=== PATIENT | male | born 1965 | race Two or more races ===

== ENCOUNTER 2021-02-26 09:04 | Day surgery (SDC) | payer MEDICARE, OTHER ==
[~2021-02-26] VITALS: Ht 180.3 cm; Wt 82.0 kg
[2021-02-26] MEDS ORDERED: LIPITOR20 MG PO (09:22)
[2021-02-26] MEDS ORDERED: KLONOPIN2 MG PO ×3 (09:23→09:24)
[2021-02-26] MEDS ORDERED: COLACE100 MG PO (09:25)
[2021-02-26] MEDS ORDERED: NEURONTIN300 MG PO ×2 (09:25→09:26)
[2021-02-26] MEDS ORDERED: LEVOTHYROXINE50 MC1 PO (09:27)
--- NOTE | 2021-02-26 10:20 | NUR ---
LE 0930 WATCHING TV. CAREGIVER AT BEDSIDE. 1020 RESTING. CAREGIVER IN ROOM.
--- NOTE | 2021-02-26 11:46 | NUR ---
WATCHING TV WITH NO C/O'S. UPDATED ON DELAY.
--- NOTE | 2021-02-26 12:22 | NUR ---
LE 1215 PT'S CAREGIVER ASKING FOR SOMETHING TO HELP PT RELAX. PT PULLING AT IV. SPOKE WITH ANESTHESIA. NEW ORDERS RECEIVED. 1216 VERSED 1MG GIVEN IVP. CAREGIVER DRAWING PICTURES FOR PT. 1221 VERSED 1MG GIVEN IVP TO HELP PT RELAX. AFRIN 2 SPRAYS PER NOSTRIL GIVEN PER ANESTHESIA REQUEST. CAREGIVER DRAWING AT BEDSIDE TO HELP RELAX PT.
--- NOTE | 2021-02-26 12:41 | NUR ---
PT WATCHING TV. CAREGIVER AT BEDSIDE.
--- NOTE | 2021-02-26 13:49 | NUR ---
CAREGIVER REPORTS PT GETTING RESTLESS AND STARTING TO PULL AT IV. GYNECOLOGIST NOTIFIED AND MEDICAITON GIVEN PER GYNECOLOGIST.
--- NOTE | 2021-02-26 15:15 | NUR ---
02/26/21 1515 Francie Holt 1512: PT ARRIVES TO PACU FOR RECOVERY. NON RESPONSIVE AND OPA IN PLACE. VSS, RESP EVEN AND UNLABORED. O2 SAT STABLE ON 6L VIA FACEMASK >98%
--- NOTE | 2021-02-26 15:40 | NUR ---
PT RETURNED TO ROOM 7 AND CAREGIVER AT BEDSIDE. VSS. PT SITTING IN HIGH FOWLERS AND ASKING FOR COFFEE, PT IS NONVERBAL.
--- NOTE | 2021-02-26 16:42 | NUR ---
PATIENT DISCHARGE INSTRUCTIONS GIVEN TO CAREGIVER, VERBALIZED UNDERSTANDING. PATIENT STEADY ON FEET WHEN AMBULATING, TAKEN TO THE FRONT ENTRANCE IN A WHEELCHAIR BY TREMAINE PERKINS.
== END 2021-02-26 16:40 | disposition home or self-care (01) ==
LOC: DS 09:04 → OPS 09:04 → DS 09:07 → OPS 11:45
PROVIDERS: ATTEND Dentist General Practice
PROC: 0CDWXZ1 Extraction of Upper Tooth, Multiple, External Approach (ICD-10-PCS; principal; 2021-02-26 11:45)
DX: K03.6 Deposits [accretions] on teeth (principal); K04.7 Periapical abscess without sinus; F84.0 Autistic disorder; F25.9 Schizoaffective disorder, unspecified; E03.9 Hypothyroidism, unspecified; E78.00 Pure hypercholesterolemia, unspecified; Z88.1 Allergy status to other antibiotic agents
CPT/HCPCS: 00170; 36415; 80048; 85025; J0330; J2001; J2250; J2704; J7121

== ENCOUNTER 2022-08-12 05:39 | Day surgery (SDC) | payer MEDICARE, OTHER ==
[~2022-08-12] VITALS: Ht 180.3 cm; Wt 80.4 kg
[~2022-08-12 05:39] MED LIST: COLACE100 MG PO; KLONOPIN2 MG PO; LEVOTHYROXINE50 MC1 PO; LIPITOR20 MG PO; MINERIN CREME454 G1; NEURONTIN300 MG PO; PRENATAL TABLE1 EAC3; VITAMIN D3125 MC2
[2022-08-12] MEDS ORDERED: MAPAP500 MG PO (06:11)
--- NOTE | 2022-08-12 06:13 | NUR ---
PT NON VERBAL HEARING AID CONSULTANT VICKI ANSWERING QUESTIONS FOR PT.
--- NOTE | 2022-08-12 06:25 | NUR ---
HAD 2ND RN HOLD ARM PT COOPERATIVE FOR BLOOD DRAW AND IV.
--- NOTE | 2022-08-12 06:30 | NUR ---
RESTORER LACE AND TEXTILES IN TO GIVE 2 MG VERSED IV. PT AND CONTINUOUS IMPROVEMENT DIRECTOR BOTH INSTRUCTED TO NOT GET OOB WITH OUT ASSISTANCE. RAILS UP.
--- NOTE | 2022-08-12 06:38 | NUR ---
CONTS ACTIVE, NOT LOOKING SEDATED AT THIS TIME.
--- NOTE | 2022-08-12 08:15 | NUR ---
08/12/22 0815 Blanca Scott 0809- PT ARRIVES TO PACU AWAKE AND TALKING. RESP EVEN AND UNLABORED. OXYGEN SAT LOW TO MID 90'S ON RA. PT IS NONVERBAL. ACCORDING TO FACES SCALE, PT DOES NOT APPEAR TO BE IN PAIN. PT IS NOT GRIMACING AND LEGS ARE NOT RESTLESS. 0811- PT'S CAREGIVER BROUGHT BACK TO KEEP PT RELAXED. 0814- DR. NIELSEN AT THE BEDSIDE TO TALK WITH HIS CAREGIVER.
--- NOTE | 2022-08-12 08:28 | NUR ---
HAS RETURNED TO HAND DRILLER VICKI AT BEDSIDE INTERACTING WITH PT.
== END 2022-08-12 09:25 | disposition home or self-care (01) ==
LOC: OPS 05:39 → DS 05:39 → OPS 07:00
PROVIDERS: ATTEND Dentist General Practice
PROC: 0CQWXZ1 Repair of Upper Tooth, Multiple, External Approach (ICD-10-PCS; 2022-08-12)
PROC: 0CQXXZ1 Repair of Lower Tooth, Multiple, External Approach (ICD-10-PCS; principal; 2022-08-12 07:00)
DX: K05.6 Periodontal disease, unspecified (principal); K03.6 Deposits [accretions] on teeth
CPT/HCPCS: 36415; 80048; 85025; J0330; J1100; J2250; J2405; J2704; J3010

== ENCOUNTER 2023-08-18 05:30 | Day surgery (SDC) | payer MEDICARE, OTHER | END 2023-08-18 09:20 | disposition home or self-care (01) | LOC: DS 05:30 | PROC: 0CDXXZ0 Extraction of Lower Tooth, Single, External Approach (ICD-10-PCS; principal; 2023-08-18) | PROC: 0CDWXZ0 Extraction of Upper Tooth, Single, External Approach (ICD-10-PCS; 2023-08-18) | DX: K02.9 Dental caries, unspecified (principal); F84.0 Autistic disorder; F25.9 Schizoaffective disorder, unspecified; Z79.899 Other long term (current) drug therapy ==

== ENCOUNTER 2025-07-11 05:44 | Day surgery (SDC) | payer MEDICARE, OTHER ==
[~2025-07-11] VITALS: Ht 182.9 cm; Wt 75.7 kg
[~2025-07-11 05:44] MED LIST changes: +LACTATED RINGER'S 1,000 ML IV SCH; +MAPAP500 MG PO; -MINERIN CREME454 G1; +MINERIN CREME454 G1 TOP; +VITAMIN D3125 MC1 PO
[2025-07-11 06:05] VITALS: BP 111/73
[2025-07-11] MEDS ORDERED: DAILY VALUE1 EACH PO (06:14)
[2025-07-11] MEDS ORDERED: ROCURONIUM BROMIDE 50 MG/5 ML SYR ONE (06:44)
[2025-07-11] MEDS ORDERED: LIDOCAINE HCL 2% 5 ML SDV ONE (06:44)
[2025-07-11] MEDS ORDERED: fentaNYL citrate 100 MCG/2 ML VIAL ONE (06:45)
[2025-07-11] MEDS ORDERED: MIDAZOLAM HCL 2 MG/2 ML VIAL ONE (06:45)
[2025-07-11] MEDS ORDERED: LIDOCAINE HCL 1% 5 ML SDV INJ ONE (07:00)
[2025-07-11] MEDS ORDERED: IBLOOD GLUCOSE TEST STRIP 1 EA TEST VI PRN ×2 (07:00→07:30)
[2025-07-11] MEDS ORDERED: GLYCOPYRROLATE 1 MG/5 ML MDV ONE (07:25)
[2025-07-11] MEDS ORDERED: DEXAMETHASONE SOD PHOS 4 MG/ML VIAL ONE (07:25)
[2025-07-11] MEDS ORDERED: NALOXONE HCL 0.4 MG SYR IV PRN (07:30)
[2025-07-11] MEDS ORDERED: fentaNYL citrate 50 MCG/ML SDV IV PRN (07:30)
[2025-07-11] MEDS ORDERED: SUGAMMADEX SODIUM 200 MG/2 ML ML ONE (08:16)
[2025-07-11] MEDS ORDERED: ACETAMINOPHEN 1,000 MG/100 ML VIAL ONE (08:16)
[2025-07-11] MEDS ORDERED: SEVOFLURANE 250 ML BTL INH ONE (08:22)
--- NOTE | 2025-07-11 08:59 | NUR ---
CAREGIVER HELPING PT EAT PUDDING APPLESAUCE HAS DRANK COFFEE ALSO. WAS UOP TO BR ON ARRIVAL FROM PACU
--- NOTE | 2025-07-11 09:04 | NUR ---
07/11/25 0904 Kath Han 0898 PT ARRIVED TO PACU. VSS, PT ASLEEP AND RESP EVEN AND UNLABORED. 0833 PT RESTLESS IN BED AND GRABBING AT HIS MASK AND BP CUFF. O2 MASK REMOVED AND RN REORIENTING PT TO PACU. PT USING SIGN LANGUAGE AND ASKING FOR COFFEE AND BATHROOM. 0845 PT RETURNED TO DS WITH CAREGIVERS AT BEDSIDE, PT UP TO BATHROOM AND IV SL. CAREGIVER AT PT SIDE. PT RETURNED TO BED AND DRINKING COFFEE. UNABLE TO GET BP, PT RESTLESS. REPORT GIVEN AND ALL QUESTIONS ANSWERED.
--- NOTE | 2025-07-11 09:10 | NUR ---
PT FIXATED ON IV BEING REMOVED AND APPEARS TO BE CAUSING PT INCREASED AGITATION. PT TOLERATING PO FOOD AND FLUIDS WELL AND DENIES NAUSEA WHEN ASKED. IV REMOVED, TIP APPEARS INTACT. PRESSURE DRSG APPLIED WITH GAUZE AND COBAN.
--- NOTE | 2025-07-11 09:15 | NUR ---
CAREGIVERS ASSISTING PT WITH DRSG. CALL LIGHT AND PERSONAL BELONGINGS WITHIN REACH.
[2025-07-11 09:30] VITALS: BP 104/65
--- NOTE | 2025-07-11 09:30 | NUR ---
INTO PTS ROOM FOR ROUTINE REASESSMENT. VS TAKEN. PT CONT TO DENY PAIN OR NAUSEA WHEN ASKED. NO BLEEDING OR DRAINAGE NOTED FROM GUMS. PT WITH LARGE QUANITY SUFFICIENT VOID REPORTED FROM CLOSET ORGANIZER ANNA. VERBAL AND WRITTEN DISCHARGE EDUCATION PROVIDED TO PT AND CAREGIVERS. ALL QUESTIONS ANSWERED.
--- NOTE | 2025-07-11 09:45 | NUR ---
PT DISCHARGED FROM DS VIA WC TO PASSENGER SIDE OF CAREGIVER VAN. ALL PERSONAL BELONGINGS TAKEN WITH PT.
== END 2025-07-11 09:45 | disposition home or self-care (01) ==
LOC: OPS 05:44 → DS 05:44 → OPS 07:30
PROVIDERS: ATTEND Dentist General Practice
PROC: 0CRW0J1 Replacement of Upper Tooth, Multiple, with Synthetic Substitute, Open Approach (ICD-10-PCS; 2025-07-11)
PROC: 0CRX0J1 Replacement of Lower Tooth, Multiple, with Synthetic Substitute, Open Approach (ICD-10-PCS; principal; 2025-07-11 07:30)
DX: K05.6 Periodontal disease, unspecified (principal); K02.9 Dental caries, unspecified; D64.9 Anemia, unspecified; E78.5 Hyperlipidemia, unspecified; E03.9 Hypothyroidism, unspecified; F84.0 Autistic disorder; Z79.890 Hormone replacement therapy; Z79.899 Other long term (current) drug therapy; Z88.1 Allergy status to other antibiotic agents; Z88.8 Allergy status to other drugs, medicaments and biological substances
CPT/HCPCS: 01112; J0131; J1100; J2003; J2250; J2704; J3010; J3490; J7121